=== PATIENT | female | born 2000 | race Caucasian/White ===

== ENCOUNTER 2025-09-29 21:10 | Emergency (ER) | payer OTHER, SELFPAY ==
[2025-09-29 21:21] VITALS: BP 154/97; PULSE 88; TEMP 36.8; O2SAT 98; BMI 38.5
--- NOTE | 2025-09-29 21:35 | ECG_ITS ---
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 Measurements Intervals [place] Rate: 82 P: 43 MO: 148 QRS: 34 QRSD: 76 T: 31 QT: 356 QTc: 394 Interpretive Statements 1100 Sinus rhythm 4068 Nonspecific [place] abnormality 9130 borderline ECG No previous ECG available for comparison Electronically Signed On 09-30-2025 19:32:46 EST by TOSHIA IBRAHIM M.D.
--- NOTE | 2025-09-29 21:36 | ED_ITS ---
HPI - Anxiety General Chief Complaint: Anxiety Stated Complaint: ANXIETY Time Seen by Provider: 09/29/25 21:28 Source: patient Mode of arrival: walk-in Limitations: no limitations History of Present Illness HPI narrative: cc - possible anxiety About an hour ago, while eating dinner at her in-law's home - the patient developed fast heart rate, nausea and sensation of tingling from my face all the way down my body . She denies any cough, cold or infectious symptoms She has previously been diagnosed with anxiety and just started an SSRI for the first time about 4 days ago. No one talked to her about what to expect while starting this medication. She sees a primary care provider in [place]. She does not have a therapist, counselor or psychiatrist. She told me that she has been intermittently seeing a certification engineer since 2020, which she developed fast heart rate. She said that she previously wore a Holter monitor that was negative aside from some occasional bouts of sinus tachycardia. She said that she is seeing certification engineer who is trying to evaluate her for POTS -but the workup is incomplete and ongoing. No recent illness. No fever or chills. No cough or cold symptoms. No headache or blurred vision. No focal weakness or paralysis. No sensory changes -other than the tingling . Related Data Home Medications ?Medication ?Instructions ?Recorded ?Confirmed sertraline 25 mg tablet (Zoloft) 25 mg PO DAILY 09/29/25 Allergies Allergy/AdvReac Type Severity Reaction Status Date / Time No Known Drug Allergies Allergy Verified 09/29/25 21:28 PFSH PFSH Social History Little interest or pleasure in doing things: not at all Feeling down, depressed, or hopeless: not at all Exam Narrative Exam Narrative: Nurses notes and vital signs reviewed and patient is not hypoxic. afebrile General: Well-appearing and in no apparent distress. Skin: Warm, dry, no pallor noted. No rash. Head: Normocephalic, atraumatic. Neck: Supple, non-tender. Eye: Pupils are equal, round and EOMI. No scleral icterus. Ears, Nose, Mouth, and Throat: TM are clear, no posterior oropharynx erythema or nasal mucosal hypertrophy, uvula is mid-line Oral mucosa is moist Cardiovascular: Regular Rate and Rhythm without murmur, gallop or rub. Respiratory: No accessory muscle use or respiratory distress. Lungs are clear to auscultation, no wheezing, rales or rhonchi Chest Wall: no tenderness Back: No midline thoracic or lumbar vertebral tenderness. No CVA tenderness Musculoskeletal: normal ROM, no calf or popliteal tenderness, no lower extremity edema/swelling GI: Abdomen is soft, non-distended. Normal bowel sounds. No masses appreciated. No tenderness to palpation. No rebound, guarding, or rigidity noted. Neurological: A&O x4. No cranial nerve dysfunction observed. No truncal ataxia. Moves all extremities. Sensation intact. Psychiatric: Cooperative and interactive. Normal mood and affect. Constitutional Vital Signs, click to edit/add: Last Vital Signs Temp 98.2 F 09/29/25 21:21 Pulse 88 09/29/25 21:21 Resp 18 09/29/25 21:21 BP 154/97 H 09/29/25 21:21 Pulse Ox 98 09/29/25 21:21 Course Vital Signs Vital signs: Vital Signs Temperature 98.2 F 09/29/25 21:21 Pulse Rate 88 09/29/25 21:21 Respiratory Rate 18 09/29/25 21:21 Blood Pressure 154/97 H 09/29/25 21:21 Pulse Oximetry 98 09/29/25 21:21 Temperature 98.2 F 09/29/25 21:21 Pulse Rate 88 09/29/25 21:21 Respiratory Rate 18 09/29/25 21:21 Blood Pressure 154/97 H 09/29/25 21:21 Pulse Oximetry 98 09/29/25 21:21 MDM - Anxiety MDM Narrative Medical decision making narrative: Patient presents with an acute bout of tingling, heart racing and nausea that was not precipitated and occurred about an hour before she arrived here. She denies any cough cold or infectious symptoms. Patient was placed on rn cardiac rehab and EKG obtained. Blood drawn and sent for evaluation. She was given oral dissolvable Zofran to help with her nausea. Electrolytes, renal function and magnesium were normal. White blood cell count was elevated at 12.4 with left shift noted. Qualitative hCG, serum, was negative. Portable chest x-ray = no PTX, infiltrate, effusion, CM or opacity. Pt felt better after receiving oral dissolvable Zofran. Patient was informed of results and given reassurance. She was discharged home with recommendation to follow-up with her certification engineer as scheduled. Lab Data Attestation: I reviewed the patient's lab results. Labs: Lab Results 09/29/25 Range/Units 22:00 WBC 12.4 H (4.0-11.0) 10^3/uL RBC 4.86 (4.20-5.40) 10^6/uL Hgb 14.7 (12.0-16.0) g/dL Hct 43.2 (36.0-48.0) % MCV 88.9 (81.0-99.0) fL MCH 30.2 (26.7-34.0) pg MCHC 34.0 (29.9-35.2) g/dL RDW 11.8 (11.0-15.0) % Plt Count 390 (150-450) 10^3/uL MPV 9.4 L (9.5-13.5) fL Neut % (Auto) 80.3 H (43.0-75.0) % Lymph % (Auto) 12.3 L (20.5-60.0) % [place] % (Auto) 6.1 (1.7-12.0) % Eos % (Auto) 0.2 L (0.9-7.0) % Baso % (Auto) 0.5 (0.2-2.0) % Neut # (Auto) 9.9 H (1.4-6.5) 10^3/uL Lymph # (Auto) 1.5 (1.2-3.8) 10^3/uL [place] # (Auto) 0.8 (0.3-0.8) 10^3/uL Eos # (Auto) 0.0 (0.0-0.7) 10^3/uL Baso # (Auto) 0.1 (0.0-0.1) 10^3/uL Abs Immat Gran (auto) 0.07 H (0.00-0.03) 10^3/uL Imm/Tot Granulo (auto) 0.6 H (0.0-0.5) % Sodium 136 (136-145) mmol/L Potassium 3.9 (3.5-5.1) mmol/L Chloride 102 (98-107) mmol/L Carbon Dioxide 27.9 (21.0-32.0) mmol/L Anion Gap 10.0 BUN 18.0 (7.0-18.0) mg/dL Creatinine 0.78 (0.55-1.02) mg/dL Est GFR ( Amer) >60 (>=60 mL/min/1.73m^2) Est GFR (Non-Af Amer) >60 (>=60 mL/min/1.73m^2) BUN/Creatinine Ratio 23.1 Glucose 137 H (74-106) mg/dL Calcium 9.6 (8.5-10.1) mg/dL Magnesium 2.3 (1.8-2.4) mg/dL Serum HCG, Qual Negative (NEGATIVE) Imaging Data Chest x-ray: Attestation: I personally reviewed and interpreted this imaging study as follows: My impression: NAD ECG Data Attestation: I personally reviewed and interpreted this ECG as follows: Interpretation: EKG interpretation:Emergency Department physician interpretation. Normal sinus rhythm at 82bpm. Normal axis, normal intervals and no ST segment elevation or depression. Discharge Plan Discharge Chief Complaint: Anxiety Clinical Impression: Acute anxiety Patient Disposition: Home, Self-Care Time of Disposition Decision: 22:55 Prescriptions / Home Meds: No Action sertraline [Zoloft] 25 mg tablet 25 mg PO DAILY Print Language: [place] Instructions: Anxiety (ED) Referrals: Physician,Non-Staff, MD [Primary Care Provider] - 1 week
[2025-09-29 22:22] LABS: Hematocrit 43.2 % (36.0-48.0); Hemoglobin 14.7 g/dL (12.0-16.0); Immature Granulocytes Abs Auto 0.07 10^3/uL (0.00-0.03); Immature Granulocytes Pct Auto 0.6 % (0.0-0.5); Lymphocytes Absolute Auto 1.5 10^3/uL (1.2-3.8); Mean Corpuscular HGB Conc 34.0 g/dL (29.9-35.2); Mean Corpuscular Hemoglobin 30.2 pg (26.7-34.0); Mean Corpuscular Volume 88.9 fL (81.0-99.0); Platelet Count 390 10^3/uL (150-450); Red Blood Count 4.86 10^6/uL (4.20-5.40); White Blood Count 12.4 10^3/uL (4.0-11.0)
--- NOTE | 2025-09-29 22:32 | XR_ITS ---
[facility] [place] [id number] Patient Name: ANGELIQUE HANSEN MRN: [id number] date: 2000 Sex: F Assigned Patient Location: ER Current Patient Location: Accession/Order Number: [id number] Exam Date: 09/29/2025 22:35 Report Date: 09/30/2025 07:57 At the request of: CHICO ROBERSON Procedure: XR chest 1V PORTABLE AP ERECT CHEST 2223 hours CLINICAL HISTORY: palpitations COMPARISON: None The heart is within normal limits. There is no vascular congestion. The lungs, as visualized, are clear. There is no effusion or pneumothorax. The osseous structures are intact. XR/XR chest 1V IMPRESSION: NO ACUTE FINDINGS Impression dictated by: Theresa Redd M.D. 09/30/2025 7:57 AM Dictation Location: [place] [address] Electronically authenticated by: [id number] Y Date: 09/30/2025 07:57
[2025-09-29 22:33] LABS: Anion Gap 10.0; Blood Urea Nitrogen 18.0 mg/dL (7.0-18.0); Calcium 9.6 mg/dL (8.5-10.1); Carbon Dioxide 27.9 mmol/L (21.0-32.0); Chloride 102 mmol/L (98-107); Estimated GFR (African America >60 (>=60 mL/min/1.73m^2); Estimated GFR (Non-African Ame >60 (>=60 mL/min/1.73m^2); Glucose 137 mg/dL (74-106); Magnesium 2.3 mg/dL (1.8-2.4); Potassium 3.9 mmol/L (3.5-5.1); Sodium 136 mmol/L (136-145)
== END 2025-09-29 23:26 | disposition home or self-care (01) ==
PROVIDERS: Emergency Provider Emergency Medicine
DX: F41.9 Anxiety disorder, unspecified (principal)
CPT/HCPCS: 36415; 71045; 80048; 83735; 84703; 85025; 93005; 99285